=== PATIENT | female | born 1965 | race Caucasian/White ===

== ENCOUNTER 2025-03-19 14:10 | Emergency (ER) | payer MEDICAID ==
[~2025-03-19] VITALS: Ht 152.4 cm; Wt 62.2 kg
[2025-03-19 14:26] VITALS: O2SAT 98
[2025-03-19 14:29] VITALS: BP 105/70; PULSE 94; RESP 18; TEMP 37; O2SAT 98
== END 2025-03-19 15:40 | disposition home or self-care (01) ==
LOC: ER 15:27
DX: J06.9 Acute upper respiratory infection, unspecified (principal)
CPT/HCPCS: 71045; 99283